=== PATIENT | female | born 1985 | race Hispanic/Latino ===

== ENCOUNTER 2025-01-24 01:27 | Emergency (ER) | payer SELFPAY ==
[~2025-01-24] VITALS: Ht 149.9 cm; Wt 68.0 kg
[2025-01-24 01:28] VITALS: TEMP 98.9
[2025-01-24 01:57] LABS: BASOPHILS # (AUTO) 0.1 (0.0-0.1); BASOPHILS % 0.4 % (0.0-1.0); EOSINOPHILS % 0.3 % (0.0-6.0); HEMATOCRIT 34.5 % (34.2-44.1); HEMOGLOBIN 11.5 g/dL (12.0-16.0); LYMPHOCYTES # (AUTO) 3.2 (1.0-3.2); LYMPHOCYTES % 23.2 % (18.0-39.1); MEAN CORPUSCULAR HEMOGLOBIN 27.4 pg (28-32); MEAN CORPUSCULAR HGB CONC 33.3 g/dL (31-35); MEAN CORPUSCULAR VOLUME 82.1 fL (81-99); MONOCYTES # (AUTO) 0.7 (0.2-0.8); MONOCYTES % 5.1 % (4.4-11.3); NEUTROPHILS # (AUTO) 9.8 (2.1-6.9); NEUTROPHILS % 70.6 % (38.7-80.0); PLATELET COUNT 422 x10e3/uL (140-360); RED CELL DISTRIBUTION WIDTH 13.5 % (11.7-14.4); WHITE BLOOD COUNT 13.84 x10e3/uL (4.8-10.8)
[2025-01-24 02:12] LABS: ALBUMIN 4.4 g/dL (3.5-5.0); ALBUMIN/GLOBULIN RATIO 1.1 (0.8-2.0); ANION GAP 18.6 mmol/L (8-16); BILIRUBIN,TOTAL 0.7 mg/dL (0.2-1.2); CALCIUM 9.6 mg/dL (8.4-10.2); CREATININE, SERUM 0.76 mg/dL (0.57-1.11); POTASSIUM 3.6 mmol/L (3.5-5.1); TOTAL PROTEIN 8.3 g/dL (6.5-8.1)
[2025-01-24 02:18] LABS: TROPONIN I 0.004 ng/mL (0-0.300)
[2025-01-24] MEDS: SODIUM CHLORIDE 0.9% 1000ML 1,000 ML IV STA (02:24)
[2025-01-24 03:04] VITALS: PULSE 90; RESP 16
[2025-01-24] MEDS: HYDRALAZINE HCL 20 MG/ML VIAL IV STA (03:36)
[2025-01-24] MEDS ORDERED: HYDRALAZINE HCL10 MG PO (04:22)
[2025-01-24 04:41] LABS: AMPHETAMINES SCREEN,URINE NEGATIVE (NEGATIVE); BENZODIAZEPINES SCREEN,URINE NEGATIVE (NEGATIVE); CANNABINOIDS SCREEN,URINE NEGATIVE (NEGATIVE); COCAINE SCREEN,URINE NEGATIVE (NEGATIVE); METHADONE SCREEN, URINE NEGATIVE (NEGATIVE); OPIATES SCREEN,URINE NEGATIVE (NEGATIVE); PHENCYCLIDINE SCREEN,URINE NEGATIVE (NEGATIVE)
[2025-01-24 04:42] LABS: PREGNANCY TEST, URINE NEGATIVE (NEGATIVE)
[2025-01-24] MEDS: LABETALOL HCL 5 MG/ML 20ML VIAL IV STA (04:54)
[2025-01-24 04:56] VITALS: BP 145/94; O2SAT 100
== END 2025-01-24 04:35 | disposition home or self-care (01) ==
LOC: ER 01:36
DX: R00.2 Palpitations (principal); I10 Essential (primary) hypertension; R94.31 Abnormal electrocardiogram [ECG] [EKG]
CPT/HCPCS: 36415; 71045; 80053; 80307; 81025; 82550; 83690; 83880; 84484; 85025; 93005; 99284; J0360; J3490; J7030